=== PATIENT | female | born 1980 | race Caucasian/White ===

== ENCOUNTER 2022-02-02 09:24 | Outpatient (REF) | payer OTHER, SELFPAY ==
--- NOTE | ~2022-02-02 | MR_ITS ---
EXAMINATION: MR BRAIN WITHOUT AND WITH CONTRAST CLINICAL INFORMATION: Neurofibromatosis. COMPARISON: None available. TECHNIQUE: MRI of the brain was obtained using routine sequences without and following the administration of 8 mL of Gadavist intravenous contrast. FINDINGS: No focal restricted diffusion is demonstrated to suggest acute or subacute cerebral ischemia. No evidence of acute or chronic hemorrhagic products on heme-sensitive imaging. Nonspecific T2 FLAIR hyperintensity within the medial aspect of the right thalamus. No additional parenchymal signal abnormalities. Proportional prominence of the ventricles and sulcal spaces without evidence of obstructive hydrocephalus. No abnormal mass effect. No midline shift. Normal appearance of the pituitary gland. Normal positioning of the cerebellar tonsils. Normal arterial and venous vascular flow voids are present. No abnormal contrast enhancement. 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 Normal, homogeneous marrow signal. Mild mucosal thickening of the paranasal sinuses. Atelectasis of the maxillary sinuses. No signal abnormalities within the mastoids. There appears to be a degree of dysmorphism of the left mandibular ramus/condyle. MR/MR head/brain wo/w con IMPRESSION: 1. No acute intracranial abnormalities. No abnormal intracranial enhancement. 2. Nonspecific subcentimeter T2 FLAIR hyperintensity in the medial right thalamus. No additional parenchymal signal abnormalities. 3. 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
== END 2022-02-02 09:25 | disposition home or self-care (01) ==
LOC: HO.MRI 09:24
PROVIDERS: Visit Provider Psychiatry & Neurology Neurology
DX: Q85.01 Neurofibromatosis, type 1 (principal)
CPT/HCPCS: 70553; A9585